=== PATIENT | female | born 1975 | race Caucasian/White ===

== ENCOUNTER 2020-06-01 12:08 | Emergency (ER) | payer BC, MEDICAID, OTHER ==
[~2020-06-01] VITALS: Ht 160 cm; Wt 98.2 kg
[2020-06-01] MEDS ORDERED: SODIUM CHLORIDE FLUSH 10ML SYR IVF ONE (13:00)
--- NOTE | 2020-06-01 13:23 | NUR ---
PT COMES IN C/O RIGHT FLANK PAIN THAT RADIATES TO RIGHT LOWER QUADRANT. STATES PAIN STARTED AROUND 10AM THIS MORNING. STATES NAUSEA "FROM THE PAIN". PT DESCRIBES PAIN "I FEEL LIKE A CENTER OF PAIN THAT GOES TO MY BACK IS NOW MOVING TO MY BACK. FEELS LIKE A SHARP PAIN IN THE MIDDLE AND NUMBNESS IN MY BACK". STATES SHE TOOK 2 IBUPROFEN THIS MORNING AROUND 11AM "THAT DIDNT HELP". STATES THIS HAS HAPPENED 2 OTHER TIMES AND IBUPROFEN HAS HELPED WITH THE PAIN. MONITORS CONNECTED
--- NOTE | 2020-06-01 13:36 | NUR ---
MD AT BEDSIDE. DISCUSSED PLAN OF CARE. QUESTIONS ANSWERED
--- NOTE | 2020-06-01 13:41 | NUR ---
PT AMBULATED TO/FROM BATHROOM WITH STEADY GAIT
[2020-06-01 13:43] LABS: HCG UR SG 1.036 (1.003-1.030); MICROSCOPIC AUTO
[2020-06-01] MEDS ORDERED: HYDROmorphone 2 MG/ML, 1ML ONE (13:43)
[2020-06-01] MEDS ORDERED: ONDANSETRON 2MG/ML, 2ML ONE (13:43)
--- NOTE | 2020-06-01 13:53 | NUR ---
IV & MEDS NEEDED FIRST BEFORE CT EXAM
[2020-06-01] MEDS ORDERED: ONDANSETRON 2MG/ML, 2ML IVPush ONE (14:00)
[2020-06-01] MEDS ORDERED: HYDROmorphone 2 MG/ML, 1ML IVPush PRN (14:00)
--- NOTE | 2020-06-01 14:22 | NUR ---
PT BACK FROM CT. LAB AT BEDSIDE. ORDERED MEDICATIONS ADMINISTERED. VSS. PT .STATES PAIN IS "BETTER". WILL CONTINUE TO MONITOR
[2020-06-01 14:35] LABS: BASOPHILS % (AUTO) 1 % (0-1); EOSINOPHILS % (AUTO) 0 % (1-7); LYMPHOCYTES % (AUTO) 8 % (22-44); MEAN CORPUSCULAR HEMOGLOBIN 27.4 pg (27.0-34.8); MEAN CORPUSCULAR HGB CONC 32.7 g/dL (32.4-35.8); MEAN PLATELET VOLUME 7.1 fL (7.4-10.4); MONOCYTES % (AUTO) 4 % (2-9); NEUTROPHILS % (AUTO) 87 % (42-75); PLATELET COUNT 306 x10^3/uL (130-400); RED CELL DISTRIBUTION WIDTH 13.2 % (9.6-15.2)
[2020-06-01 14:45] LABS: ALANINE AMINOTRANSFERASE 29 U/L (12-78); ALBUMIN 3.8 g/dL (3.4-5.0); ANION GAP 5 mmol/L (5-15); CALCIUM 8.9 mg/dL (8.5-10.1); CHLORIDE 109 mmol/L (98-107); CREATININE 0.84 mg/dL (0.55-1.02)
--- NOTE | 2020-06-01 14:46 | NUR ---
PT OXYGEN SATURATION AT 88% ON ROOM AIR FOLLOWING ADMIN. OF DILAUDID. PT .PLACED ON 2l NASAL CANNULA WITH 98% ON ROOM AIR. VITAL SIGNS NOW STABLE. PT STATES 0/10 PAIN. STATES NO ADDITIONAL NEEDS AT THIS TIME
[2020-06-01 14:47] LABS: ALKALINE PHOSPHATASE 84 U/L (45-117); BILIRUBIN,TOTAL 0.3 mg/dL (0.2-1.0); TOTAL PROTEIN 7.4 g/dL (6.4-8.2)
--- NOTE | 2020-06-01 14:52 | NUR ---
MD AT BEDSIDE TO DISCUSS RESULTS AND PLAN OF CARE. QUESTIONS ANSWERED.
[2020-06-01 14:57] LABS: MD SCAN
[2020-06-01 15:24] VITALS: BP 120/68
--- NOTE | 2020-06-01 15:25 | NUR ---
DISCHARGE ORDERS RECEIVED. IV REMOVED WITH TIP INTACT.
--- NOTE | 2020-06-01 15:51 | NUR ---
PT TO DISCHARGE VIA WHEELCHAIR FOLLOWING IV DILAUDID. TO DRIVE PT. HOME. PT ENCOURAGED TO FOLLOWUP DISCUSSED. PT ENCOURAGED TO RETURN TO THE ED WITH WORSENING SX. PT AND SPOUSE BOTH VERBALIZE UNDERSTANDING. RX GIVEN TO PT. AND NARCOTIC ACK. SIGNED.
== END 2020-06-01 15:55 | disposition home or self-care (01) ==
LOC: ED 15:29
DX: N13.2 Hydronephrosis with renal and ureteral calculous obstruction (principal); R31.9 Hematuria, unspecified; Z88.2 Allergy status to sulfonamides; Z88.1 Allergy status to other antibiotic agents
CPT/HCPCS: 36415; 74176; 80053; 81001; 81025; 85025; 96374; 96375; 99284; J1170; J2405